=== PATIENT | female | born 1965 | race Caucasian/White ===

== ENCOUNTER 2016-10-20 20:04 | Emergency (ER) | payer OTHER ==
[2016-10-20] MEDS ORDERED: KETOROLAC 60 MG/2 ML VIAL IM ONE (21:14)
[2016-10-20] MEDS ORDERED: ORPHENADRINE 60 MG/2 ML AMP ONE (21:15)
== END 2016-10-20 22:09 | disposition home or self-care (01) ==
LOC: ER 20:04
DX: S16.1XXA Strain of muscle, fascia and tendon at neck level, initial encounter (principal); S29.012A Strain of muscle and tendon of back wall of thorax, initial encounter; S90.31XA Contusion of right foot, initial encounter; M54.31 Sciatica, right side; V49.49XA Driver injured in collision with other motor vehicles in traffic accident, initial encounter; Y92.410 Unspecified street and highway as the place of occurrence of the external cause; F17.210 Nicotine dependence, cigarettes, uncomplicated
CPT/HCPCS: 72050; 72072; 96372